=== PATIENT | female | born 1990 | race Hispanic/Latino ===

== ENCOUNTER 2021-02-25 09:20 | Emergency (ER) | payer SELFPAY ==
[2021-02-25] MEDS ORDERED: Ibuprofen 200 MG TAB ONE (09:46)
== END 2021-02-25 09:55 | disposition home or self-care (01) ==
LOC: CSHERS 09:20
DX: J06.9 Acute upper respiratory infection, unspecified (principal)
CPT/HCPCS: 99283

== ENCOUNTER 2021-12-21 09:27 | Day surgery (SDC) | payer SELFPAY ==
[2021-12-21 10:05] VITALS: BMI 24.5
[2021-12-21] MEDS ORDERED: hydrALAZINE 20 MG/ML VIAL SLOW IVP PRN (10:42)
== END 2021-12-21 11:00 | disposition home or self-care (01) ==
LOC: CSHLD/OP 09:27
PROVIDERS: ATTEND Family Medicine
DX: O26.892 Other specified pregnancy related conditions, second trimester (principal); R10.30 Lower abdominal pain, unspecified; O24.419 Gestational diabetes mellitus in pregnancy, unspecified control; Z3A.26 26 weeks gestation of pregnancy; Z79.899 Other long term (current) drug therapy
CPT/HCPCS: 87480; 87510; 87660; 99283

== ENCOUNTER 2022-03-01 07:14 | Emergency (ER) | payer MEDICAID, OTHER ==
[2022-03-01 08:23] LABS: SARS-CoV-2 NAA Rapid Test Not Detected (NotDetected)
== END 2022-03-01 08:40 | disposition home or self-care (01) ==
LOC: CSHERS 07:14
DX: O99.891 Other specified diseases and conditions complicating pregnancy (principal); R51.9 Headache, unspecified; O99.513 Diseases of the respiratory system complicating pregnancy, third trimester; J00 Acute nasopharyngitis [common cold]; Z20.822 Contact with and (suspected) exposure to COVID-19; Z3A.36 36 weeks gestation of pregnancy
CPT/HCPCS: 99284